=== PATIENT | male | born 1970 | race Caucasian/White ===

== ENCOUNTER 2019-02-12 09:40 | Emergency (ER) | payer BC ==
[~2019-02-12] VITALS: Wt 90.0 kg
[~2019-02-12 09:40] MED LIST: HYDR-4011 PO; IBUP-1542 PO
[2019-02-12 09:44] VITALS: BP 140/78; PULSE 90; RESP 18
[2019-02-12] MEDS ORDERED: KETOROLAC 60 MG INJ IM STA (11:10)
[2019-02-12] MEDS ORDERED: HYDROCODONE/APAP (5/325) TAB PO ONE (11:30)
== END 2019-02-12 11:55 | disposition home or self-care (01) ==
LOC: FTE 09:40
DX: M10.9 Gout, unspecified (principal)
CPT/HCPCS: 73610; 96372; 99284; J1885; Z7610